=== PATIENT | male | born 1965 | race Hispanic/Latino ===

== ENCOUNTER 2017-09-11 18:54 | Emergency (ER) | payer SELFPAY | END 2017-09-11 22:39 | disposition home or self-care (01) | LOC: ERS 18:54 | DX: K02.9 Dental caries, unspecified (principal); E78.5 Hyperlipidemia, unspecified; F32.9 Major depressive disorder, single episode, unspecified; F41.9 Anxiety disorder, unspecified; Z79.899 Other long term (current) drug therapy | CPT/HCPCS: 99282 ==

== ENCOUNTER 2018-10-28 14:25 | Emergency (ER) | payer SELFPAY | END 2018-10-28 18:10 | disposition home or self-care (01) | LOC: ERS 14:25 | DX: J02.9 Acute pharyngitis, unspecified (principal); E03.9 Hypothyroidism, unspecified; E78.5 Hyperlipidemia, unspecified; E78.00 Pure hypercholesterolemia, unspecified; F41.9 Anxiety disorder, unspecified; F32.9 Major depressive disorder, single episode, unspecified | CPT/HCPCS: 87081; 87430; 99283 ==

== ENCOUNTER 2019-04-12 18:32 | Emergency (ER) | payer SELFPAY | END 2019-04-12 19:45 | disposition home or self-care (01) | LOC: ERS 18:32 | DX: J02.9 Acute pharyngitis, unspecified (principal); E03.9 Hypothyroidism, unspecified; E78.5 Hyperlipidemia, unspecified; E78.00 Pure hypercholesterolemia, unspecified; F41.9 Anxiety disorder, unspecified; F32.9 Major depressive disorder, single episode, unspecified; Z79.899 Other long term (current) drug therapy | CPT/HCPCS: 87081; 87430; 99283 ==

== ENCOUNTER 2019-06-16 19:40 | Emergency (ER) | payer SELFPAY ==
[2019-06-16] MEDS ORDERED: Bacitracin 1 PK ONE (20:18)
[2019-06-16] MEDS ORDERED: Adacel (T-DAP) 0.5 ML SYRINGE ONE (20:18)
--- NOTE | 2019-06-16 20:25 | RAD ---
THREE VIEWS RIGHT HAND: History: Injury to right hand after falling. Comparison: None. 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 No fracture, dislocatio n, or other osseous abnormality is seen involving the right hand. IMPRESSION: No acute osseous abnormality. POS: [facility]
--- NOTE | 2019-06-16 20:26 | RAD ---
FOUR VIEWS LEFT KNEE: History: Left knee injury. Patient fell while running. FINDINGS: No fracture or dislocation is seen. No significant joint space narrowing is appreciated. Lateral view is rotated, but no obvious joint effusion is seen in a suprapatellar location. IMPRESSION: No acute osseous abnormality left knee. POS: [facility]
== END 2019-06-16 21:04 | disposition home or self-care (01) ==
LOC: ERS 19:40
DX: S80.02XA Contusion of left knee, initial encounter (principal); S60.221A Contusion of right hand, initial encounter; E03.9 Hypothyroidism, unspecified; E78.5 Hyperlipidemia, unspecified; E78.00 Pure hypercholesterolemia, unspecified; F41.9 Anxiety disorder, unspecified; F32.9 Major depressive disorder, single episode, unspecified; Z79.899 Other long term (current) drug therapy; W18.30XA Fall on same level, unspecified, initial encounter
CPT/HCPCS: 90471; 90715

== ENCOUNTER 2021-02-10 19:15 | Emergency (ER) | payer BC, OTHER, SELFPAY | END 2021-02-10 20:43 | disposition home or self-care (01) | LOC: ERS 19:15 | DX: R42 Dizziness and giddiness (principal); E03.9 Hypothyroidism, unspecified; E78.00 Pure hypercholesterolemia, unspecified; E78.5 Hyperlipidemia, unspecified | CPT/HCPCS: 99283 ==

== ENCOUNTER 2024-01-19 12:05 | Emergency (ER) | payer SELFPAY ==
[2024-01-19] MEDS ORDERED: Acetaminophen 500 MG TAB ONE (13:23)
[2024-01-19] MEDS ORDERED: Dexamethasone 10 MG/ML VIAL ONE (13:23)
== END 2024-01-19 14:28 | disposition home or self-care (01) ==
LOC: ERS 12:05
DX: T78.40XA Allergy, unspecified, initial encounter (principal)
CPT/HCPCS: 87081; 87428; 87430; 99282; J1100